=== PATIENT | male | born 1940 | race Caucasian/White ===

== ENCOUNTER 2017-01-20 07:12 | Emergency (ER) | payer OTHER ==
[~2017-01-20] VITALS: Ht 180.3 cm; Wt 75.2 kg
[~2017-01-20 07:12] MED LIST: NOHOMEMEDS
[2017-01-20] MEDS ORDERED: ERYTHROMYC1 APPLICAT RIGHT EYE (07:37)
[2017-01-20 07:50] VITALS: BP 165/84
== END 2017-01-20 07:51 | disposition home or self-care (01) ==
LOC: EME 07:12
PROC: 3E0234Z Introduction of Serum, Toxoid and Vaccine into Muscle, Percutaneous Approach (ICD-10-PCS; principal; 2017-01-20)
DX: H11.31 Conjunctival hemorrhage, right eye (principal); Z23 Encounter for immunization; Y93.H2 Activity, gardening and landscaping; W22.8XXA Striking against or struck by other objects, initial encounter
CPT/HCPCS: 99281; 99284

== ENCOUNTER 2018-01-03 10:23 | Emergency (ER) | payer OTHER ==
[~2018-01-03] VITALS: Ht 180.3 cm; Wt 73.4 kg
[~2018-01-03 10:23] MED LIST changes: +ERYTHROMYC1 APPLICAT RIGHT EYE
[2018-01-03 15:41] VITALS: BP 134/63
== END 2018-01-03 15:42 | disposition home or self-care (01) ==
LOC: EME 10:23
DX: M71.21 Synovial cyst of popliteal space [Baker], right knee (principal); M79.89 Other specified soft tissue disorders; R60.0 Localized edema; Z85.72 Personal history of non-Hodgkin lymphomas
CPT/HCPCS: 93971; 99281; 99284